=== PATIENT | female | born 1980 | race Caucasian/White ===

== ENCOUNTER 2021-11-24 06:32 | Emergency (ER) | payer BC, SELFPAY ==
[2021-11-24 06:54] VITALS: BP 122/70; BP 132/86; PULSE 65; PULSE 80; RESP 16; TEMP 36.7; O2SAT 100; O2SAT 98; BMI 29.0
--- NOTE | 2021-11-24 07:02 | ED.GENADULT ---
HPI - General Adult General Chief complaint: General Medical Stated complaint: SWOLLEN TONGUE Time Seen by Provider: 11/24/21 06:47 Related Data Allergies Allergy/AdvReac Type Severity Reaction Status Date / Time penicillin V Allergy Unknown Verified 11/04/15 00:00 Penicillins [PENICILLINS] Allergy Unknown UNK Unverified 02/27/20 19:31 Physical Exam ED Vital Signs: Vital Signs - 24 hr 11/24/21 06:54 Temperature 98.1 F Pulse Rate 65 Respiratory Rate 16 Blood Pressure 122/70 Pulse Oximetry 100 Oxygen Delivery Method Room Air BMI result Body Mass Index 29.0
--- NOTE | 2021-11-24 07:13 | ED_ITS ---
HPI - Allergic Reaction General Chief complaint: General Medical Stated complaint: SWOLLEN TONGUE Time Seen by Provider: 11/24/21 06:47 Source: patient Mode of arrival: EMS Limitations: no limitations History of Present Illness HPI narrative: since weekend has had issues with tongue swelling and feeling her mouth is dry - no other significant symptoms of COVID some brain fog. She is fully vaccinated and did not receive treatment for her COVID. She notes just overall feeling an enlarged swollen tongue and her tastebuds even enlarged and shedded. complaint: other (tongue swelling) Onset (ago): day(s) (7) Exposure: unknown Symptoms: tongue swelling Severity: mild Treatment prior to arrival: benadryl (50mg IV) Previous Allergic Reaction History: none Related Data Previous Rx's Medication Instructions Recorded prednisone 20 mg tablet 40 mg PO DAILY 4 days #8 tabs 11/24/21 Allergies Allergy/AdvReac Type Severity Reaction Status Date / Time penicillin V Allergy Unknown Verified 11/04/15 00:00 Penicillins [PENICILLINS] Allergy Unknown UNK Unverified 02/27/20 19:31 Review of Systems Review of Systems: Constitutional : No Fever, No Chills ENT/Mouth : positive oral swelling, No Hoarseness, No Swallowing Difficulty Eyes: No Eye Pain, No Swelling, No Redness Cardiovascular : No Chest Pain, No SOB Respiratory : No Cough, No Sputum, No Wheezing, No Dyspnea Gastrointestinal : No Nausea, No Vomiting, No Diarrhea, No abdominal Pain Genitourinary : No Dysuria, No Urinary Frequency, No Hematuria Musculoskeletal : No joint pain, No Myalgias, No Joint Swelling Skin : No Skin Lesions, no rash Neuro : No Weakness, No Numbness, No Headache Psych : No Anxiety/Panic, No Depression All other systems reviewed and are negative FOR[facility], [facility] Past Medical History Attestation statement: The following information was validated with the patient. Medical History Anxiety Surgical History Hx of appendectomy Social History Social History Alcohol intake: never Patient Tobacco Use Status: Never used Tobacco Use of substances other than those prescribed or required for medical reasons: No Advance Directives: No Advance Directives Information Provided: No Patient : No Physical Exam ED Vital Signs: Vital Signs - 24 hr 11/24/21 06:54 Temperature 98.1 F Pulse Rate 65 Respiratory Rate 16 Blood Pressure 122/70 Pulse Oximetry 100 Oxygen Delivery Method Room Air BMI result Body Mass Index 29.0 Appearance: Alert. Oriented X3. No acute distress. Eyes: Pupils equal, round and reactive to light. ENT: posterior pharynx clear, tongue not erythematous mildly enlarged I can see her tooth imprints on the side but it is not boggy or fluid filled - normal color in appearance, no swelling in posterior pharynx. Neck: Normal inspection. Neck supple. no stridor CVS: Normal heart rate and rhythm. Pulses normal. Respiratory: No respiratory distress. Breath sounds normal. Abdomen: Soft and non-tender. Skin: Skin warm and dry. Normal skin color. Normal skin turgor. Extremities: No lower extremity edema. No calf ttp Neuro: Oriented X 3. No motor deficit. No sensory deficit. Course Course Course Narrative: symptoms improved stable for DC no progression can be DC home safely MDM - Allergic Reaction MDM Narrative Medical decision making narrative: 41 yo female with no sig PMH just started with COVID symptoms on weekend comes in with c/o swollen tongue after COVID no signs of resp involvement or swallowing difficulty at this time we did discuss possible Sjogren's syndrome and follow up with PCP - IV steroids ordered. Discharge Plan Discharge Clinical Impression: Glossal swelling Patient Disposition: Home, Self-Care Instructions: General Allergic Reaction (ED) Additional Instructions: return to ED for any worsening symptoms or concerns please follow up with your doctor for possible autoimmune issues such as sjogren's syndrome can take 25 to 50mg every 6 hours as needed for allergy symptoms Prescriptions: New prednisone 20 mg tablet 40 mg PO DAILY 4 Days Qty: 8 0RF Stand Alone Forms: Work/School Release
[2021-11-24] MEDS: methylPREDNISolone Sod Succ 125 MG/2 ML VIAL IVPUSH (07:19)
--- NOTE | 2021-11-24 07:21 | PC.NURSE ---
pt a/o x 3 no sob/rose noted skin pink warm dry speaks in full sentences. pt is able to hold secretions well no drooling noted. lungs - cta.
== END 2021-11-24 08:28 | disposition home or self-care (01) ==
PROVIDERS: Emergency Provider Emergency Medicine
DX: K14.8 Other diseases of tongue (principal)
CPT/HCPCS: 96374; 99283; 99284; J2930